=== PATIENT | male | born 1990 | race Caucasian/White ===

== ENCOUNTER 2017-09-02 13:58 | Day surgery (SDC) | payer BC ==
[~2017-09-02] VITALS: Ht 172.7 cm; Wt 127.2 kg
[2017-09-02 14:34] LABS: HEMATOCRIT 45.6 % (38.0-50.0); MCH 30.6 PG (29.0-34.0); MCHC 34.6 G/DL (30.0-36.0); MCV 88.4 FL (86-99); MEAN PLAT.VOLUME 10.3 uM^3 (9.0-12.4); PLATELET COUNT 325 K/uL (156-360); RBC DIS.WIDTH-CV 11.9 % (11.8-14.6); RBC DIS.WIDTH-SD 38.9 % (39-53); RED BLOOD COUNT 5.16 M/uL (4.00-5.50); WHITE BLOOD COUNT 21.3 K/uL (4.1-10.2)
[2017-09-02 14:47] LABS: CHLORIDE 102 mEq/L (99-109); POTASSIUM 4.6 mEq/L (3.7-5.4); SODIUM 139 mEq/L (136-147)
[2017-09-02 14:49] LABS: GLUCOSE 155 mg/dL (70-99)
[2017-09-02 14:50] LABS: ANION GAP 13 MEQ/L (2-14)
[2017-09-02 14:51] LABS: TOTAL BILIRUBIN 1.8 mg/dL (0.0-1.0)
[2017-09-02 14:52] LABS: ALKALINE PHOSPHATASE 91 IU/L (3-129)
[2017-09-02 14:53] LABS: GFR ESTIMATE (CALCULATED) > 59 mL/min/
[2017-09-02 14:54] LABS: UREA NITROGEN (BUN) 11 mg/dL (9-23)
[2017-09-02 14:56] LABS: LIPASE 23 U/L (1.0-51.0)
[2017-09-02 18:15] LABS: DIRECT BILIRUBIN 0.6 mg/dL (0.0-0.3)
[2017-09-03 00:11] VITALS: BP 132/79
[2017-09-03 03:50] VITALS: BP 126/59
[2017-09-03] MEDS ORDERED: PERCOCET 5/31 TABLET PO (07:35)
[2017-09-03] MEDS ORDERED: COLACE100 MG PO (07:35)
[2017-09-03 07:45] LABS: HEMATOCRIT 39.4 % (38.0-50.0); MCH 30.4 PG (29.0-34.0); MCV 89.3 FL (86-99); MEAN PLAT.VOLUME 9.7 uM^3 (9.0-12.4); PLATELET COUNT 330 K/uL (156-360); RBC DIS.WIDTH-CV 12.3 % (11.8-14.6); RBC DIS.WIDTH-SD 40.7 % (39-53); RED BLOOD COUNT 4.41 M/uL (4.00-5.50); WHITE BLOOD COUNT 17.1 K/uL (4.1-10.2)
[2017-09-03 08:02] VITALS: BP 112/62
[2017-09-03 12:22] VITALS: BP 119/69
[2017-09-03 16:39] VITALS: BP 145/80
[2017-09-03 19:20] VITALS: BP 135/75
[2017-09-04] VITALS: BP 130/69; BP 153/90
[2017-09-04 03:50] VITALS: BP 131/67
[2017-09-04 07:00] LABS: HEMATOCRIT 34.9 % (38.0-50.0); MCH 29.8 PG (29.0-34.0); MCHC 32.7 G/DL (30.0-36.0); MCV 91.1 FL (86-99); MEAN PLAT.VOLUME 9.5 uM^3 (9.0-12.4); PLATELET COUNT 268 K/uL (156-360); RBC DIS.WIDTH-CV 12.6 % (11.8-14.6); RBC DIS.WIDTH-SD 41.5 % (39-53); RED BLOOD COUNT 3.83 M/uL (4.00-5.50); WHITE BLOOD COUNT 10.7 K/uL (4.1-10.2)
[2017-09-04 07:15] VITALS: BP 119/68
== END 2017-09-04 18:35 | disposition home or self-care (01) ==
LOC: EME 13:58 → SDC 19:23 → 2SOUTH 22:35 → ENRESERV 23:03 → 2EASTP 23:40
PROVIDERS: Emergency Medicine; Surgery
PROC: 0FT44ZZ Resection of Gallbladder, Percutaneous Endoscopic Approach (ICD-10-PCS; principal; 2017-09-02)
DX: K80.00 Calculus of gallbladder with acute cholecystitis without obstruction (principal); R11.2 Nausea with vomiting, unspecified
CPT/HCPCS: 80053; 82248; 83690; 85027; 88304; 99281; 99285; G0378; J0131; J0295; J0330; J1100; J1170; J1650; J1885; J2270; J2405; J2710; J3010; J7030; J7050